=== PATIENT | male | born 1950 | race Caucasian/White ===

== ENCOUNTER 2016-09-20 12:28 | Day surgery (SDC) | payer OTHER ==
[~2016-09-20] VITALS: Ht 182.9 cm; Wt 94.8 kg
[2016-09-20] MEDS ORDERED: PROPOFOL 20 ML ONE (13:23)
[2016-09-20] MEDS ORDERED: PAXIL (13:28)
[2016-09-20] MEDS ORDERED: PRAVASTATIN (13:28)
[2016-09-20 13:31] VITALS: BP 123/67; PULSE 69; RESP 18; Ht 182.9 cm; Wt 94.8 kg
--- NOTE | 2016-09-21 09:48 | GILP ---
DATE OF PROCEDURE: PROCEDURE: Colonoscopy to cecum. BRIEF HISTORY AND INDICATIONS: Patient is being evaluated for colorectal cancer screening. PREMEDICATION: Monitored anesthesia care by anesthesiologist. SURGEON: Sg Boyle MD INSTRUMENT USED: Olympus colonoscope. PREPARATION: Adequate. TECHNIQUE: After informed consent, with the patient/relatives understanding the procedure, its ivonne cations potential risks and complications, including but not limited to: allergic reaction, bleeding , perforation, infection, missed lesions and after all pertinent questions were answered to the anna marie ent's satisfaction, the patient/relatives signed the witnessed informed consent. Following this, premedication was administered slowly IV push by under careful cardiovascular and re spiratory monitoring with pulse oximetry, automatic blood pressure and digital marketing specialist. Once the sedativ e effect was achieved, the patient was placed in the left lateral decubitus position, digital rectal examination was performed. The colonoscope was then introduced and advanced under visual control th roughout all segments of the colon including: the rectum, sigmoid, descending colon, splenic flexure , transverse colon, hepatic flexure, ascending colon and finally reaching the cecum which was clearl y identified by transillumination, finger indentation and the ileocecal valve. Careful examination o f the mucosa of the lower gastrointestinal tract both on insertion as well as withdrawal of the inst rument disclosed the following findings: Rectal Examination: No evidence of perirectal disease, no masses. Colonic Mucosa: The colonic mucosa is remarkable for mild diverticulosis in the left side of the co prieto. Otherwise, no significant abnormalities are noted. The ileocecal valve was clearly identified and appears unremarkable. The instrument was withdrawn, reexamining the mucosa in detail. No reggie tional abnormalities were noted with the exception of moderate sized internal hemorrhoids. The instrument was then withdrawn, the patient tolerated the procedure well and was transferred out of the Endoscopy Suite awake and in good condition to continue recovery under observation. IMPRESSION: 1. Mild diverticulosis. 2. Moderate sized internal hemorrhoids. PLAN: The patient will be followed up as an outpatient, and Hemoccult stool testing is recommended. Screening colonoscopy in 10 years is recommended. Dictated By: SG BOYLE MS/DARNELL Conf#: [id number] DID#: [id number]
== END 2016-09-20 15:03 | disposition home or self-care (01) ==
LOC: GIL 12:28
PROVIDERS: ATTEND Internal Medicine Gastroenterology
DX: Z12.11 Encounter for screening for malignant neoplasm of colon (principal); K57.90 Diverticulosis of intestine, part unspecified, without perforation or abscess without bleeding; K64.8 Other hemorrhoids; E78.5 Hyperlipidemia, unspecified
CPT/HCPCS: 45378; Z7610